=== PATIENT | female | born 1955 | race Caucasian/White ===

== ENCOUNTER → 2020-03-13 | Outpatient (CLI) | payer BC | LOC: KOH-I 14:06 | DX: R22.1 Localized swelling, mass and lump, neck (principal) | CPT/HCPCS: 76536 ==

== ENCOUNTER → 2020-04-01 | Outpatient (CLI) | payer BC | LOC: KOH-I 11:11 | DX: R59.0 Localized enlarged lymph nodes (principal) | CPT/HCPCS: 76536 ==